=== PATIENT | male | born 1975 | race African-American/Black ===

== ENCOUNTER 2018-02-03 16:16 | Inpatient (IN) | payer OTHER ==
[2018-02-03 16:39] VITALS: BMI 24.0
--- NOTE | 2018-02-03 17:20 | HP ---
CIWA Score - CIWA Score Nausea/Vomitin Muscle Tremors: 1-None Visible, but [place] Anxiety: 3 Agitation: 1-Slight > Activity Paroxysmal Sweats: 2 Orientation: 1-Uncertain about Date Tacttile Disturbances: 0-None Auditory Disturbances: 0-None Visual Disturbances: 0-None Headache: 2-Mild CIWA-Ar Total Score: 12 Admission [facility] Chief Complaint: ETOH withdrawal symptoms and cocaine dependence. Allergies/Adverse Reactions: Allergies Allergy/AdvReac Type Severity Reaction Status Date / Time aspirin Allergy Severe Difficulty Verified 02/03/18 16:52 Breathing sulfamethoxazole Allergy Verified 02/03/18 16:53 [From Bactrim] trimethoprim [From Bactrim] Allergy Verified 02/03/18 16:53 History of Present Illness: Patient presents with ETOH withdrawal symptoms and Cocaine dependence. Patient started drinking at age 39. Drinks up to 1/2 of tequila daily. Last drink was early this morning. Also smokes Crack/Cocaine since age 39. Smokies up to 500 dollars weekly. Last time he smoked was last night. Patient denies hx of seizures. PMH includes HTN and HIV. Patient is compliant with medication. Has own meds and last time take was 2 days ago. Patient denies SI/HI and suicide attempts. This is patients first time in detox. Exam Limitations: No Limitations - Ebola screening Have you traveled outside of the country in the last 21 days: No Have you had contact with anyone from an Ebola affected area: No Have you been sick,other than usual withdrawal symptoms: No Do you have a fever: No - Review of Systems Constitutional: Changes in sleep EENT: reports: No Symptoms Reported Respiratory: reports: No Symptoms reported Cardiac: reports: No Symptoms Reported GI: reports: Poor Fluid Intake, Abdominal cramping : reports: No Symptoms Reported Musculoskeletal: reports: No Symptoms Reported Integumentary: reports: Sweating Neuro: reports: Tremors Endocrine: reports: No Symptoms Reported Hematology: reports: No Symptoms Reported Psychiatric: reports: Anxious, Depressed Patient History - Patient Medical History Hx Asthma: No Hx Chronic Obstructive Pulmonary Disease (COPD): No Hx Cancer: No Hx Cardiac Disorders: Yes (HTN) Hx Congestive Heart Failure: No Hx Hypertension: No Hx Hypercholesterolemia: No Hx Pacemaker: No HX Cerebrovascular Accident: No Hx Seizures: No Hx Dementia: No Hx Diabetes: No Hx Gastrointestinal Disorders: No Hx Liver Disease: No Hx Genitourinary Disorders: No Hx Sexually Transmitted Disorders: Yes Hx Renal Disease (ESRD): No Hx Thyroid Disease: No Hx Human Immunodeficiency Virus (HIV): Yes (diagnosed in 2008) Hx Hepatitis C: No Hx Depression: No Hx Suicide Attempt: No Hx Bipolar Disorder: No Hx Schizophrenia: No - Patient Surgical History Past Surgical History: No Hx Neurologic Surgery: No Hx Cataract Extraction: No Hx Cardiac Surgery: No Hx Lung Surgery: No Hx Breast Surgery: No Hx Breast Biopsy: No Hx Abdominal Surgery: No Hx Appendectomy: No Hx Cholecystectomy: No Hx Genitourinary Surgery: No Hx Orthopedic Surgery: No Anesthesia Reaction: No - PPD History Previous Implant?: Yes Documented Results: Negative w/o proof Implanted On Prior [facility] Admission?: No PPD to be Administered?: Yes - Smoking Cessation Smoking history: Never smoked Have you smoked in the past 12 months: No Hx Chewing Tobacco Use: No Initiated information on smoking cessation: No - Substance & Tx. History Hx Alcohol Use: Yes Hx Substance Use: Yes Substance Use Type: Alcohol, Cocaine Hx Substance Use Treatment: No - Substances Abused Crack Route: Smoking Frequency: 3-6 times per week Amount used: $500/wk Age of first use: 39 Date of Last Use: 02/02/18 ETOH Route: Oral Frequency: Daily Amount used: 1 pint Age of first use: 39 Date of Last Use: 02/03/18 Family Disease History - Family Disease History Family History: Denies Admission Physical Exam [facility] - Vital Signs Vital Signs: Vital Signs - 24 hr 02/03/18 16:37 Temperature 97.9 F Pulse Rate 65 Respiratory 18 Rate Blood Pressure 139/99 - Physical General Appearance: Yes: No Apparent Distress, Appropriately Dressed, Tremorous , Sweating, Anxious HEENTM: Yes: EOMI, Hearing grossly Normal, Normocephalic, Normal Voice, STEPHEN, Pharynx Normal Respiratory: Yes: Chest Non-Tender, Lungs Clear, Normal Breath Sounds, No Respiratory Distress, No Accessory Muscle Use Neck: Yes: No masses,lesions,Nodules, Supple Breast: Yes: Breast Exam Deferred Cardiology: Yes: Regular Rhythm, Regular Rate, S1, S2 Abdominal: Yes: Normal Bowel Sounds, Non Tender, Flat Genitourinary: Yes: Within Normal Limits Back: Yes: Muscle Spasm Musculoskeletal: Yes: full range of Motion, Gait Steady, Muscle Pain Extremities: Yes: Normal Inspection, Normal Range of Motion, Non-Tender, Tremors Neurological: Yes: executive chef II-XII NML intact, Fully Oriented, Alert, Motor Strength 5/5, Depressed Affect Integumentary: Yes: Normal Color, Warm, Moist Lymphatic: Yes: Within Normal Limits - Diagnostic (1) Alcohol dependence with uncomplicated withdrawal Current Visit: Yes Status: Acute (2) HTN (hypertension) Current Visit: Yes Status: Chronic Qualifiers: Hypertension type: essential hypertension Qualified Code(s): I10 - Essential (primary) hypertension (3) HIV (human immunodeficiency virus infection) Current Visit: Yes Status: Chronic (4) Depressed affect Current Visit: Yes Status: Chronic (5) Cocaine dependence Current Visit: Yes Status: Chronic Qualifiers: Substance use status: uncomplicated Qualified Code(s): F14.20 - Cocaine dependence, uncomplicated Cleared for Admission [facility] - Detox or Rehab [facility] Level of Care: Medically Managed Detox Regimen/Protocol: Librium [facility] Breath Alcohol Content Breath Alcohol Content: 0.004 Urine Drug Screen - Results Drug Screen Negative: No Urine Drug Screen Results: SATHYA-Cocaine
[2018-02-03] MEDS ORDERED: P-EPHED 60MG/TRIPROLIDI 2.5MG TABLET PO PRN (17:28)
[2018-02-03] MEDS ORDERED: LOPERAMIDE HCL 2 MG CAPSULE PO PRN (17:28)
[2018-02-03] MEDS ORDERED: hydrOXYzine PAMOATE 50 MG CAPSULE (FP) PO PRN (17:28)
[2018-02-03] MEDS ORDERED: MAGNESIUM HYDROX 2400MG/30ML ORAL SUSPENSION 30 ML CUP PO PRN (17:28)
[2018-02-03] MEDS ORDERED: MAG HYDROX/AL HYDROX/SIMETH 30 ML UNIT-DOSE CUP PO PRN (17:28)
[2018-02-03] MEDS ORDERED: MENTHOL/PHENOL 1 EACH UD MM PRN (17:28)
[2018-02-03] MEDS ORDERED: MAGNESIUM CITRATE 300 ML BOTTLE PO PRN (17:28)
[2018-02-03] MEDS ORDERED: IBUPROFEN 400 MG TABLET (FP) PO PRN (17:28)
[2018-02-03] MEDS ORDERED: guaiFENesin/D-METHORPHAN HB 10 ML UNIT-DOSE CUPS PO PRN (17:28)
[2018-02-03] MEDS ORDERED: chlordiazePOXIDE HCL 25 MG CAPSULE PO PRN (17:33)
[2018-02-03] MEDS ORDERED: chlordiazePOXIDE HCL 25 MG CAPSULE PO ONE (18:15)
[2018-02-03] MEDS: ETRAVIRINE 100 MG TABLET PO SCH (22:36)
[2018-02-03] MEDS: chlordiazePOXIDE HCL 25 MG CAPSULE PO SCH (22:36)
[2018-02-03] MEDS: MELATONIN 5 MG TABLETS PO PRN (22:37)
[2018-02-03] MEDS: THIAMINE HCL 100 MG TABLET (FP) PO SCH (22:39)
[2018-02-04 02:34] LABS: URINE APPEARANCE CLEAR; URINE BILIRUBIN NEGATIVE (<2.0 mg/dL); URINE COLOR YELLOW; URINE GLUCOSE (UA) NEGATIVE (NEGATIVE); URINE KETONE NEGATIVE (NEGATIVE); URINE LEUK ESTERASE NEGATIVE (NEGATIVE); URINE NITRITE NEGATIVE (NEGATIVE); URINE PROTEIN NEGATIVE (NEGATIVE); URINE UROBILINOGEN NEGATIVE mg/dL (0.2-1.0)
[2018-02-04] MEDS: chlordiazePOXIDE HCL 25 MG CAPSULE PO SCH ×4 (05:44→22:05)
[2018-02-04] MEDS: PRENATAL VITAMINS W/ FOLIC ACID TABLET (FP) PO SCH (10:08)
[2018-02-04] MEDS: RITONAVIR 100 MG TABLET PO SCH (10:09)
[2018-02-04] MEDS: ETRAVIRINE 100 MG TABLET PO SCH ×2 (10:09→22:05)
[2018-02-04] MEDS: DARUNAVIR ETHANOLATE 800 MG TAB PO SCH (10:09)
[2018-02-04 11:00] LABS: HEMATOCRIT 41.5 % (35.4-49); HEMOGLOBIN 14.4 GM/dL (11.7-16.9); MCH 30.8 pg (25.7-33.7); MCHC 34.6 g/dl (32.0-35.9); MEAN CELL VOLUME 89.2 fl (80-96); MEAN PLT VOLUME 8.4 fl (7.5-11.1); PLATELET COUNT 194 K/MM3 (134-434); RBC 4.66 M/mm3 (4.00-5.60); RDW 14.3 % (11.9-15.9); WHITE BLOOD COUNT 4.2 K/mm3 (4.0-10.0)
[2018-02-04 11:18] LABS: CHLORIDE 101 mmol/L (98-107); POTASSIUM 3.4 mmol/L (3.5-5.1); SODIUM 140 mmol/L (136-145)
--- NOTE | 2018-02-04 11:19 | PN ---
[facility] CIWA - CIWA Score Nausea/Vomitin-No Nausea/No Vomiting Muscle Tremors: 4-Moderate,w/Arms Extend Anxiety: 4-Mod. Anxious/Guarded Agitation: 4-Moderately Restless Paroxysmal Sweats: 1-Minimal Palms Moist Orientation: 0-Oriented Tacttile Disturbances: 0-None Auditory Disturbances: 0-None Visual Disturbances: 0-None Headache: 0-None Present CIWA-Ar Total Score: 13 S Progress Note (SOAP) Subjective: ANXIETY,SWEATS. OOB AMBULATING WITH STEADY GAIT. REPORTS DETOX TAPER PROCEEDING WELL. Objective: 02/04/18 11:18 Vital Signs 02/04/18 02/04/18 02/04/18 03:30 06:19 06:30 Temperature 98.2 F Pulse Rate 81 Respiratory 18 18 18 Rate Blood Pressure 129/86 02/04/18 09:25 Temperature 97.6 F Pulse Rate 84 Respiratory 18 Rate Blood Pressure 129/83 Laboratory Tests 02/03/18 02/04/18 23:23 07:00 WBC 4.2 RBC 4.66 Hgb 14.4 Hct 41.5 MCV 89.2 MCH 30.8 MCHC 34.6 RDW 14.3 Plt Count 194 MPV 8.4 Urine Color Yellow Urine Appearance Clear Urine pH 6.0 Ur Specific [place] 1.014 Urine Protein Negative Urine Glucose (UA) Negative Urine Ketones Negative Urine Blood Negative Urine Nitrite Negative Urine Bilirubin Negative Urine Urobilinogen Negative Ur Leukocyte Esterase Negative OTHER LABS PENDING Assessment: 02/04/18 11:19 WITHDRAWAL SX Plan: CONTINUE DETOX
[2018-02-04 11:26] LABS: ALBUMIN 3.6 g/dl (3.4-5.0); ALK PHOS 64 U/L (45-117); ANION GAP 9 (8-16); BILIRUBIN,TOTAL 0.6 mg/dL (0.2-1.0); BLOOD UREA NITROGEN 10 mg/dL (7-18); CO2 30 mmol/L (21-32); CREATININE 1.2 mg/dL (0.7-1.3); GLUCOSE,RANDOM 106 mg/dL (74-106); SGOT/AST 16 U/L (15-37); SGPT/ALT 20 U/L (12-78); TOT PROT 7.2 g/dl (6.4-8.2)
--- NOTE | 2018-02-04 16:29 | EKG ---
Test Reason : Blood Pressure : / mmHG Vent. Rate : 064 BPM Atrial Rate : 064 BPM P-R Int : 146 ms QRS Dur : 086 ms QT Int : 418 ms P-R-T Axes : 053 060 041 degrees QTc Int : 431 ms NORMAL SINUS RHYTHM WITH SINUS ARRHYTHMIA NORMAL ECG NO PREVIOUS ECGS AVAILABLE Confirmed by Salvatore Peters MD ([id number]) on 02/04/2018 4:29:08 PM Referred By: Confirmed By:Salvatore Peters MD
[2018-02-04] MEDS: THIAMINE HCL 100 MG TABLET (FP) PO SCH (22:05)
[2018-02-04] MEDS: MELATONIN 5 MG TABLETS PO PRN (22:06)
[2018-02-05] MEDS: chlordiazePOXIDE HCL 25 MG CAPSULE PO SCH ×3 (05:37→17:32)
[2018-02-05] MEDS: PRENATAL VITAMINS W/ FOLIC ACID TABLET (FP) PO SCH (10:10)
[2018-02-05] MEDS: ETRAVIRINE 100 MG TABLET PO SCH (10:10)
[2018-02-05] MEDS: DARUNAVIR ETHANOLATE 800 MG TAB PO SCH (10:10)
[2018-02-05] MEDS: RITONAVIR 100 MG TABLET PO SCH (10:10)
--- NOTE | 2018-02-05 11:29 | PN ---
S CIWA - CIWA Score Nausea/Vomitin-No Nausea/No Vomiting Muscle Tremors: 4-Moderate,w/Arms Extend Anxiety: 4-Mod. Anxious/Guarded Agitation: 4-Moderately Restless Paroxysmal Sweats: 1-Minimal Palms Moist Orientation: 0-Oriented Tacttile Disturbances: 0-None Auditory Disturbances: 0-None Visual Disturbances: 0-None Headache: 0-None Present CIWA-Ar Total Score: 13 BHS Progress Note (SOAP) Subjective: ANXIETY,SWEATS,INTERMITTENT SLEEP. Objective: 02/05/18 11:28 Vital Signs 02/05/18 02/05/18 02/05/18 03:30 06:17 06:30 Temperature 97.9 F Pulse Rate 90 Respiratory 18 18 18 Rate Blood Pressure 116/73 02/05/18 09:26 Temperature 97.6 F Pulse Rate 92 H Respiratory 18 Rate Blood Pressure 114/72 Laboratory Tests 02/03/18 02/04/18 02/04/18 23:23 07:00 07:00 WBC 4.2 RBC 4.66 Hgb 14.4 Hct 41.5 MCV 89.2 MCH 30.8 MCHC 34.6 RDW 14.3 Plt Count 194 MPV 8.4 Sodium 140 Potassium 3.4 L Chloride 101 Carbon Dioxide 30 Anion Gap 9 BUN 10 Creatinine 1.2 Creat Clearance w eGFR > 60 Random Glucose 106 Calcium 9.0 Total Bilirubin 0.6 AST 16 ALT 20 Alkaline Phosphatase 64 Total Protein 7.2 Albumin 3.6 Urine Color Yellow Urine Appearance Clear Urine pH 6.0 Ur Specific [place] 1.014 Urine Protein Negative Urine Glucose (UA) Negative Urine Ketones Negative Urine Blood Negative Urine Nitrite Negative Urine Bilirubin Negative Urine Urobilinogen Negative Ur Leukocyte Esterase Negative RPR Titer 02/04/18 07:00 WBC RBC Hgb Hct MCV MCH MCHC RDW Plt Count MPV Sodium Potassium Chloride Carbon Dioxide Anion Gap BUN Creatinine Creat Clearance w eGFR Random Glucose Calcium Total Bilirubin AST ALT Alkaline Phosphatase Total Protein Albumin Urine Color Urine Appearance Urine pH Ur Specific [place] Urine Protein Urine Glucose (UA) Urine Ketones Urine Blood Urine Nitrite Urine Bilirubin Urine Urobilinogen Ur Leukocyte Esterase RPR Titer Nonreactive Assessment: 02/05/18 11:29 WITHDRAWAL SX Plan: CONTINUE DETOX
[2018-02-05] MEDS: ACETAMINOPHEN 325 MG TABLET (FP) PO PRN (17:33)
[2018-02-05] MEDS: ETRAVIRINE 200 MG TABLET PO SCH (18:06)
[2018-02-05] MEDS ORDERED: ETRAVIRINE 200 MG TABLET PO SCH (22:00)
[2018-02-05] MEDS: chlordiazePOXIDE 5 MG CAPSULE PO SCH (22:05)
[2018-02-05] MEDS: THIAMINE HCL 100 MG TABLET (FP) PO SCH (22:05)
[2018-02-05] MEDS: MELATONIN 5 MG TABLETS PO PRN (22:06)
[2018-02-06] MEDS: ACETAMINOPHEN 325 MG TABLET (FP) PO PRN ×3 (05:04→22:16)
[2018-02-06] MEDS: chlordiazePOXIDE 5 MG CAPSULE PO SCH ×3 (05:04→17:29)
[2018-02-06] MEDS: PRENATAL VITAMINS W/ FOLIC ACID TABLET (FP) PO SCH (10:10)
[2018-02-06] MEDS: DARUNAVIR ETHANOLATE 800 MG TAB PO SCH (10:10)
[2018-02-06] MEDS: RITONAVIR 100 MG TABLET PO SCH (10:11)
[2018-02-06] MEDS: ETRAVIRINE 200 MG TABLET PO SCH ×2 (10:15→22:15)
--- NOTE | 2018-02-06 11:04 | PN ---
[facility] Progress Note (SOAP) Subjective: C/O HEADACHE-RECIEVED TYLENOL,ANXIETY,FATIGUE. Objective: 02/06/18 11:02 Vital Signs Temperature 98.4 F 02/06/18 09:13 Pulse Rate 95 H 02/06/18 09:13 Respiratory Rate 18 02/06/18 09:13 Blood Pressure 117/70 02/06/18 09:13 O2 Sat by Pulse Oximetry (%) Laboratory Tests 02/03/18 02/04/18 02/04/18 23:23 07:00 07:00 WBC 4.2 RBC 4.66 Hgb 14.4 Hct 41.5 MCV 89.2 MCH 30.8 MCHC 34.6 RDW 14.3 Plt Count 194 MPV 8.4 Sodium 140 Potassium 3.4 L Chloride 101 Carbon Dioxide 30 Anion Gap 9 BUN 10 Creatinine 1.2 Creat Clearance w eGFR > 60 Random Glucose 106 Calcium 9.0 Total Bilirubin 0.6 AST 16 ALT 20 Alkaline Phosphatase 64 Total Protein 7.2 Albumin 3.6 Urine Color Yellow Urine Appearance Clear Urine pH 6.0 Ur Specific [place] 1.014 Urine Protein Negative Urine Glucose (UA) Negative Urine Ketones Negative Urine Blood Negative Urine Nitrite Negative Urine Bilirubin Negative Urine Urobilinogen Negative Ur Leukocyte Esterase Negative RPR Titer 02/04/18 07:00 WBC RBC Hgb Hct MCV MCH MCHC RDW Plt Count MPV Sodium Potassium Chloride Carbon Dioxide Anion Gap BUN Creatinine Creat Clearance w eGFR Random Glucose Calcium Total Bilirubin AST ALT Alkaline Phosphatase Total Protein Albumin Urine Color Urine Appearance Urine pH Ur Specific [place] Urine Protein Urine Glucose (UA) Urine Ketones Urine Blood Urine Nitrite Urine Bilirubin Urine Urobilinogen Ur Leukocyte Esterase RPR Titer Nonreactive Assessment: 02/06/18 11:02 WITHDRAWAL SX Plan: CONTINUE DETOX TYLENOL DIRECTED. INCREASE PO FLUIDS
[2018-02-06] MEDS: MELATONIN 5 MG TABLETS PO PRN (22:15)
[2018-02-06] MEDS: THIAMINE HCL 100 MG TABLET (FP) PO SCH (22:15)
[2018-02-06] MEDS: chlordiazePOXIDE HCL 10 MG CAPSULE PO SCH (22:15)
[2018-02-07] MEDS: chlordiazePOXIDE HCL 10 MG CAPSULE PO SCH ×2 (05:29→10:10)
[2018-02-07 09:30] VITALS: BP 133/88; PULSE 85; TEMP 97.2
[2018-02-07] MEDS: ETRAVIRINE 200 MG TABLET PO SCH (10:09)
[2018-02-07] MEDS: PRENATAL VITAMINS W/ FOLIC ACID TABLET (FP) PO SCH (10:10)
[2018-02-07] MEDS: DARUNAVIR ETHANOLATE 800 MG TAB PO SCH (10:10)
[2018-02-07] MEDS: RITONAVIR 100 MG TABLET PO SCH (10:10)
[2018-02-07] MEDS: ACETAMINOPHEN 325 MG TABLET (FP) PO PRN (10:12)
--- NOTE | 2018-02-07 10:33 | PN ---
S Progress Note (SOAP) Subjective: DETOX COMPLETED. ALERT O X 3. NAD. PT STATES HE HAS PRIMARY CARE AT [facility] WITH DR. JAVIER LOYD. Objective: 02/07/18 10:32 Vital Signs 02/07/18 02/07/18 02/07/18 03:30 06:00 09:10 Temperature 96.7 F L 97.2 F L Pulse Rate 92 H 85 Respiratory 18 18 18 Rate Blood Pressure 121/78 133/88 Laboratory Tests 02/03/18 02/04/18 02/04/18 23:23 07:00 07:00 WBC 4.2 RBC 4.66 Hgb 14.4 Hct 41.5 MCV 89.2 MCH 30.8 MCHC 34.6 RDW 14.3 Plt Count 194 MPV 8.4 Sodium 140 Potassium 3.4 L Chloride 101 Carbon Dioxide 30 Anion Gap 9 BUN 10 Creatinine 1.2 Creat Clearance w eGFR > 60 Random Glucose 106 Calcium 9.0 Total Bilirubin 0.6 AST 16 ALT 20 Alkaline Phosphatase 64 Total Protein 7.2 Albumin 3.6 Urine Color Yellow Urine Appearance Clear Urine pH 6.0 Ur Specific [place] 1.014 Urine Protein Negative Urine Glucose (UA) Negative Urine Ketones Negative Urine Blood Negative Urine Nitrite Negative Urine Bilirubin Negative Urine Urobilinogen Negative Ur Leukocyte Esterase Negative RPR Titer 02/04/18 07:00 WBC RBC Hgb Hct MCV MCH MCHC RDW Plt Count MPV Sodium Potassium Chloride Carbon Dioxide Anion Gap BUN Creatinine Creat Clearance w eGFR Random Glucose Calcium Total Bilirubin AST ALT Alkaline Phosphatase Total Protein Albumin Urine Color Urine Appearance Urine pH Ur Specific [place] Urine Protein Urine Glucose (UA) Urine Ketones Urine Blood Urine Nitrite Urine Bilirubin Urine Urobilinogen Ur Leukocyte Esterase RPR Titer Nonreactive Assessment: 02/07/18 10:32 MEDICALLY STABLE Plan: D/C PT TODAY TO [facility] [address] [place] [address] FOR AFTERCARE.
--- NOTE | 2018-02-07 10:35 | DS ---
[facility] Detox Discharge Summary Admission Date: 02/03/18 Discharge Date: 02/07/18 - History Present History: Alcohol Dependence, Cocaine Dependence Additional Comments: DETOX COMPLETED. ALERT O X 3. NAD. FOLLOW UP WITH PMD, DR JAVIER LOYD FOR MEDICAL MANAGEMENT OF COMORBID CONDITIONS NEEDED. Pertinent Past History: PLEASE SEE DX BELOW - Physical Exam Results Vital Signs: Vital Signs Temperature 97.2 F L 02/07/18 09:10 Pulse Rate 85 02/07/18 09:10 Respiratory Rate 18 02/07/18 09:10 Blood Pressure 133/88 02/07/18 09:10 O2 Sat by Pulse Oximetry (%) Pertinent Admission Physical Exam Findings: WITHDRAWAL SX Laboratory Tests 02/03/18 02/04/18 02/04/18 23:23 07:00 07:00 WBC 4.2 RBC 4.66 Hgb 14.4 Hct 41.5 MCV 89.2 MCH 30.8 MCHC 34.6 RDW 14.3 Plt Count 194 MPV 8.4 Sodium 140 Potassium 3.4 L Chloride 101 Carbon Dioxide 30 Anion Gap 9 BUN 10 Creatinine 1.2 Creat Clearance w eGFR > 60 Random Glucose 106 Calcium 9.0 Total Bilirubin 0.6 AST 16 ALT 20 Alkaline Phosphatase 64 Total Protein 7.2 Albumin 3.6 Urine Color Yellow Urine Appearance Clear Urine pH 6.0 Ur Specific [place] 1.014 Urine Protein Negative Urine Glucose (UA) Negative Urine Ketones Negative Urine Blood Negative Urine Nitrite Negative Urine Bilirubin Negative Urine Urobilinogen Negative Ur Leukocyte Esterase Negative RPR Titer 02/04/18 07:00 WBC RBC Hgb Hct MCV MCH MCHC RDW Plt Count MPV Sodium Potassium Chloride Carbon Dioxide Anion Gap BUN Creatinine Creat Clearance w eGFR Random Glucose Calcium Total Bilirubin AST ALT Alkaline Phosphatase Total Protein Albumin Urine Color Urine Appearance Urine pH Ur Specific [place] Urine Protein Urine Glucose (UA) Urine Ketones Urine Blood Urine Nitrite Urine Bilirubin Urine Urobilinogen Ur Leukocyte Esterase RPR Titer Nonreactive - Treatment Hospital Course: Detox Protocol Followed, Detoxed Safely, Responded well, Discharged Condition Good, Rehab Referral Accepted Patient has Accepted a Rehab Referral to: [email or web address] [address] [place] [address] - [facility] Discharge Medications: Ambulatory Orders Darunavir Ethanolate [Prezista -] 800 mg PO DAILY 02/03/18 Etravirine [Intelence -] 200 mg PO BID 02/03/18 Ritonavir 100 mg PO DAILY 02/03/18 - Diagnosis (1) Alcohol dependence with uncomplicated withdrawal Current Visit: Yes Status: Acute (2) Cocaine dependence Current Visit: Yes Status: Acute Qualifiers: Substance use status: uncomplicated Qualified Code(s): F14.20 - Cocaine dependence, uncomplicated (3) HIV (human immunodeficiency virus infection) Current Visit: Yes Status: Chronic (4) HTN (hypertension) Current Visit: Yes Status: Chronic Qualifiers: Hypertension type: essential hypertension Qualified Code(s): I10 - Essential (primary) hypertension - AMA Did Patient Leave Against Medical Advice: No
== END 2018-02-07 11:42 | disposition other institution (70) | DRG 774 ==
LOC: YASAS 16:16 → Y3N 18:01
PROVIDERS: ADMIT Surgery; ATTEND Surgery
PROC: HZ2ZZZZ Detoxification Services for Substance Abuse Treatment (ICD-10-PCS; principal; 2018-02-03)
DX: F10.230 Alcohol dependence with withdrawal, uncomplicated (principal); F14.20 Cocaine dependence, uncomplicated; F32.9 Major depressive disorder, single episode, unspecified; I10 Essential (primary) hypertension; Z88.2 Allergy status to sulfonamides; Z88.5 Allergy status to narcotic agent
CPT/HCPCS: 36415; 80053; 81003; 85027; 86593; 93005; 93010

== ENCOUNTER 2018-02-07 11:48 | Inpatient (IN) | payer OTHER ==
--- NOTE | 2018-02-07 12:13 | HP ---
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 However, reports feeling anxious and sleeping poorly Physical/Sexual Abuse/Trauma History: Denies history of emotional, physical or sexual abuse as well as DV relationship. No service Additional Comment: Reports history of one previous misdemeanor arrest on charges of trespassing. Told typewriter tester that the charges were dropped after completing community service Allergies/Adverse Reactions: Allergies Allergy/AdvReac Type Severity Reaction Status Date / Time aspirin Allergy Severe Difficulty Verified 02/03/18 16:52 Breathing sulfamethoxazole Allergy Verified 02/03/18 16:53 [From Bactrim] trimethoprim [From Bactrim] Allergy Verified 02/03/18 16:53 Date of last physical exam: 02/03/18 Concur with the findings of this exam: Yes - Substance Abuse/Tx History Hx Alcohol Use: Yes Hx Substance Use: Yes Substance Use Type: Alcohol (Started drinking alcohol at age 39, consumes one pint of liquor daily. Last drank on 02/03/18), Cocaine (Started smoking crack cocaine at age 39, consumes $500 worth weekly. Last smoked on 02/02/18) Hx Substance Use Treatment: Yes (Just completed his first inpt detox at this facility. First inpt rehab adm) Mental Status Exam - Mental Status Exam Alert and Oriented to: Time, Place, Person Cognitive Function: Fair Patient Appearance: Well Groomed Mood: Anxious Affect: Appropriate Patient Behavior: Cooperative Speech Pattern: Clear Voice Loudness: Normal Thought Process: Intact Thought Disorder: Not Present Hallucinations: Denies Suicidal Ideation: Denies Homicidal Ideation: Denies Insight/Judgement: Fair Sleep: Poorly Appetite: Good Muscle strength/Tone: Normal Gait/Station: Normal Psychiatric Findings - Problem List ([place] 1, 2,3) (1) Alcohol dependence Current Visit: Yes Status: Acute (2) Cocaine dependence Current Visit: No Status: Acute Qualifiers: (3) Substance-induced anxiety disorder Current Visit: Yes Status: Acute (4) Substance-induced sleep disorder Current Visit: Yes Status: Acute (5) HIV (human immunodeficiency virus infection) Current Visit: No Status: Chronic (6) HTN (hypertension) Current Visit: No Status: Chronic Qualifiers: Hypertension type: essential hypertension Qualified Code(s): I10 - Essential (primary) hypertension (7) HLD (hyperlipidemia) Current Visit: Yes Status: Chronic (8) Non-Hodgkin lymphoma Current Visit: Yes Status: Chronic (9) History of seizure disorder Current Visit: Yes Status: Chronic - Initial Treatment Plan Initial Treatment Plan: 1) Start Belsomra 10 mg po HS prn for insomnia. 2) Monitor progress
[2018-02-07] MEDS ORDERED: MAG HYDROX/AL HYDROX/SIMETH 30 ML UNIT-DOSE CUP PO PRN (13:13)
[2018-02-07] MEDS ORDERED: MAGNESIUM CITRATE 300 ML BOTTLE PO PRN (13:13)
[2018-02-07] MEDS ORDERED: IBUPROFEN 400 MG TABLET (FP) PO PRN (13:13)
[2018-02-07] MEDS ORDERED: MAGNESIUM HYDROX 2400MG/30ML ORAL SUSPENSION 30 ML CUP PO PRN (13:13)
[2018-02-07] MEDS ORDERED: LOPERAMIDE HCL 2 MG CAPSULE PO PRN (13:13)
[2018-02-07] MEDS ORDERED: P-EPHED 60MG/TRIPROLIDI 2.5MG TABLET PO PRN (13:13)
[2018-02-07] MEDS ORDERED: MENTHOL/PHENOL 1 EACH UD MM PRN (13:13)
[2018-02-07] MEDS ORDERED: hydrOXYzine PAMOATE 50 MG CAPSULE (FP) PO PRN (13:13)
[2018-02-07] MEDS ORDERED: guaiFENesin/D-METHORPHAN HB 10 ML UNIT-DOSE CUPS PO PRN (13:13)
--- NOTE | 2018-02-07 13:18 | PN ---
[facility] Progress Note Note: PATIENT TRANSFERRED FROM DETOX TO . PATIENT IN NAD. DENIES CP, SOB AND HEADACHE. REPORTS MILD DIZZINESS. BP NOTED ELEVATED AT 139/100. PATIENT HAS HX OF HTN BUT NON-COMPLIANT WITH MEDICATION. EXTERNAL HX SHOWS LISINOPRIL 40MG AND METOPROLOL 50MG BID. PE: ALERT AND ORIENTED X 3. IN NAD. SKIN WARM AND DRY. EXT WITHOUT EDEMA, FULL ROM. BREATHING WELL ON ROOM AIR. A/P HTN: WILL ORDER LISINOPRIL 40MG DAILY FIRST DOSE NOW, METOPROLOL 50MG BID FIRST DOSE NOW. CONTINUE TO MONITOR CLINICALLY.
[2018-02-07] MEDS ORDERED: LISINOPRIL 20 MG TABLET (FP) PO ONE (13:45)
[2018-02-07 14:56] VITALS: BMI 23.7
[2018-02-07] MEDS: LIDOCAINE 5% TOPICAL PATCH TP SCH (16:02)
[2018-02-07] MEDS: THIAMINE HCL 100 MG TABLET (FP) PO SCH (21:36)
[2018-02-07] MEDS: LIDOCAINE PATCH REMOVAL MC SCH (21:36)
[2018-02-07] MEDS: ETRAVIRINE 200 MG TABLET PO SCH (21:36)
[2018-02-07] MEDS: SUVOREXANT 10 MG TABLET PO PRN (21:40)
[2018-02-08] MEDS: ETRAVIRINE 200 MG TABLET PO SCH ×2 (10:28→22:01)
[2018-02-08] MEDS: RITONAVIR 100 MG TABLET PO SCH (10:28)
[2018-02-08] MEDS: LISINOPRIL 20 MG TABLET (FP) PO SCH (10:29)
[2018-02-08] MEDS: PRENATAL VITAMINS W/ FOLIC ACID TABLET (FP) PO SCH (10:29)
[2018-02-08] MEDS: DARUNAVIR ETHANOLATE 800 MG TAB PO SCH (10:29)
[2018-02-08] MEDS: ACETAMINOPHEN 325 MG TABLET (FP) PO PRN (10:30)
[2018-02-08] MEDS: LIDOCAINE 5% TOPICAL PATCH TP SCH (10:32)
[2018-02-08] MEDS: THIAMINE HCL 100 MG TABLET (FP) PO SCH (22:01)
[2018-02-08] MEDS: LIDOCAINE PATCH REMOVAL MC SCH (22:04)
[2018-02-09] MEDS: PRENATAL VITAMINS W/ FOLIC ACID TABLET (FP) PO SCH (10:39)
[2018-02-09] MEDS: RITONAVIR 100 MG TABLET PO SCH (10:39)
[2018-02-09] MEDS: DARUNAVIR ETHANOLATE 800 MG TAB PO SCH (10:39)
[2018-02-09] MEDS: LISINOPRIL 20 MG TABLET (FP) PO SCH (10:39)
[2018-02-09] MEDS: ETRAVIRINE 200 MG TABLET PO SCH ×2 (10:39→22:02)
[2018-02-09] MEDS: LIDOCAINE 5% TOPICAL PATCH TP SCH (10:40)
[2018-02-09] MEDS: ACETAMINOPHEN 325 MG TABLET (FP) PO PRN ×2 (10:42→22:03)
--- NOTE | 2018-02-09 16:37 | PN ---
[facility] Progress Note Note: Tylenol ordered for pain for pt. Pt has neuropathic pain s/p shingles but states Tylenol works better for him than Gabapentin
[2018-02-09] MEDS: MELATONIN 5 MG TABLETS PO PRN (22:01)
[2018-02-09] MEDS: LIDOCAINE PATCH REMOVAL MC SCH (22:01)
[2018-02-09] MEDS: THIAMINE HCL 100 MG TABLET (FP) PO SCH (22:01)
[2018-02-10] MEDS: PRENATAL VITAMINS W/ FOLIC ACID TABLET (FP) PO SCH (10:35)
[2018-02-10] MEDS: DARUNAVIR ETHANOLATE 800 MG TAB PO SCH (10:35)
[2018-02-10] MEDS: LISINOPRIL 20 MG TABLET (FP) PO SCH (10:35)
[2018-02-10] MEDS: RITONAVIR 100 MG TABLET PO SCH (10:35)
[2018-02-10] MEDS: ETRAVIRINE 200 MG TABLET PO SCH ×2 (10:35→21:41)
[2018-02-10] MEDS: LIDOCAINE 5% TOPICAL PATCH TP SCH (10:35)
[2018-02-10] MEDS: THIAMINE HCL 100 MG TABLET (FP) PO SCH (21:42)
[2018-02-10] MEDS: LIDOCAINE PATCH REMOVAL MC SCH (21:42)
[2018-02-10] MEDS: SUVOREXANT 10 MG TABLET PO PRN (21:42)
[2018-02-10] MEDS: ACETAMINOPHEN 325 MG TABLET (FP) PO PRN (21:43)
[2018-02-11] MEDS: PRENATAL VITAMINS W/ FOLIC ACID TABLET (FP) PO SCH (10:39)
[2018-02-11] MEDS: ETRAVIRINE 200 MG TABLET PO SCH ×2 (10:39→21:49)
[2018-02-11] MEDS: RITONAVIR 100 MG TABLET PO SCH (10:39)
[2018-02-11] MEDS: LIDOCAINE 5% TOPICAL PATCH TP SCH (10:39)
[2018-02-11] MEDS: LISINOPRIL 20 MG TABLET (FP) PO SCH (10:40)
[2018-02-11] MEDS: DARUNAVIR ETHANOLATE 800 MG TAB PO SCH (10:40)
[2018-02-11] MEDS: ACETAMINOPHEN 325 MG TABLET (FP) PO PRN (21:47)
[2018-02-11] MEDS: MELATONIN 5 MG TABLETS PO PRN (21:47)
[2018-02-11] MEDS: THIAMINE HCL 100 MG TABLET (FP) PO SCH (21:48)
[2018-02-11] MEDS: LIDOCAINE PATCH REMOVAL MC SCH (21:48)
[2018-02-12] MEDS: LISINOPRIL 20 MG TABLET (FP) PO SCH (10:39)
[2018-02-12] MEDS: DARUNAVIR ETHANOLATE 800 MG TAB PO SCH (10:40)
[2018-02-12] MEDS: ETRAVIRINE 200 MG TABLET PO SCH ×2 (10:41→21:41)
[2018-02-12] MEDS: LIDOCAINE 5% TOPICAL PATCH TP SCH (10:41)
[2018-02-12] MEDS: RITONAVIR 100 MG TABLET PO SCH (10:41)
[2018-02-12] MEDS: PRENATAL VITAMINS W/ FOLIC ACID TABLET (FP) PO SCH (10:41)
[2018-02-12] MEDS: THIAMINE HCL 100 MG TABLET (FP) PO SCH (21:40)
[2018-02-12] MEDS: MELATONIN 5 MG TABLETS PO PRN (21:40)
[2018-02-12] MEDS: ACETAMINOPHEN 325 MG TABLET (FP) PO PRN (21:41)
[2018-02-12] MEDS: LIDOCAINE PATCH REMOVAL MC SCH (22:10)
[2018-02-13] MEDS: LIDOCAINE 5% TOPICAL PATCH TP SCH (11:07)
[2018-02-13] MEDS: PRENATAL VITAMINS W/ FOLIC ACID TABLET (FP) PO SCH (11:08)
[2018-02-13] MEDS: LISINOPRIL 20 MG TABLET (FP) PO SCH (11:08)
[2018-02-13] MEDS: DARUNAVIR ETHANOLATE 800 MG TAB PO SCH (11:13)
[2018-02-13] MEDS: ETRAVIRINE 200 MG TABLET PO SCH ×2 (11:15→22:21)
[2018-02-13] MEDS: RITONAVIR 100 MG TABLET PO SCH (11:15)
[2018-02-13] MEDS: THIAMINE HCL 100 MG TABLET (FP) PO SCH (22:17)
[2018-02-13] MEDS: MELATONIN 5 MG TABLETS PO PRN (22:17)
[2018-02-13] MEDS: ACETAMINOPHEN 325 MG TABLET (FP) PO PRN (22:18)
[2018-02-13] MEDS: LIDOCAINE PATCH REMOVAL MC SCH (22:20)
[2018-02-14] MEDS: LIDOCAINE 5% TOPICAL PATCH TP SCH (10:56)
[2018-02-14] MEDS: PRENATAL VITAMINS W/ FOLIC ACID TABLET (FP) PO SCH (10:57)
[2018-02-14] MEDS: LISINOPRIL 20 MG TABLET (FP) PO SCH (10:57)
[2018-02-14] MEDS: DARUNAVIR ETHANOLATE 800 MG TAB PO SCH (10:57)
[2018-02-14] MEDS: ETRAVIRINE 200 MG TABLET PO SCH ×2 (11:09→21:43)
[2018-02-14] MEDS: RITONAVIR 100 MG TABLET PO SCH (11:09)
[2018-02-14] MEDS ORDERED: PT OWN MED DRAWER 7, Y5N ONE (11:10)
[2018-02-14] MEDS: THIAMINE HCL 100 MG TABLET (FP) PO SCH (21:42)
[2018-02-14] MEDS: MELATONIN 5 MG TABLETS PO PRN (21:44)
[2018-02-14] MEDS: LIDOCAINE PATCH REMOVAL MC SCH (21:44)
[2018-02-14] MEDS: ACETAMINOPHEN 325 MG TABLET (FP) PO PRN (21:45)
[2018-02-15] MEDS: LISINOPRIL 20 MG TABLET (FP) PO SCH (10:32)
[2018-02-15] MEDS: PRENATAL VITAMINS W/ FOLIC ACID TABLET (FP) PO SCH (10:32)
[2018-02-15] MEDS: RITONAVIR 100 MG TABLET PO SCH (10:33)
[2018-02-15] MEDS: ETRAVIRINE 200 MG TABLET PO SCH ×2 (10:33→22:23)
[2018-02-15] MEDS: DARUNAVIR ETHANOLATE 800 MG TAB PO SCH (10:33)
[2018-02-15] MEDS: LIDOCAINE 5% TOPICAL PATCH TP SCH (10:34)
[2018-02-15] MEDS: LIDOCAINE PATCH REMOVAL MC SCH (22:20)
[2018-02-15] MEDS: THIAMINE HCL 100 MG TABLET (FP) PO SCH (22:21)
[2018-02-15] MEDS: ACETAMINOPHEN 325 MG TABLET (FP) PO PRN (22:25)
[2018-02-16] MEDS: DARUNAVIR ETHANOLATE 800 MG TAB PO SCH (10:46)
[2018-02-16] MEDS: RITONAVIR 100 MG TABLET PO SCH (10:47)
[2018-02-16] MEDS: PRENATAL VITAMINS W/ FOLIC ACID TABLET (FP) PO SCH (10:47)
[2018-02-16] MEDS: LISINOPRIL 20 MG TABLET (FP) PO SCH (10:47)
[2018-02-16] MEDS: ETRAVIRINE 200 MG TABLET PO SCH ×2 (10:47→22:16)
[2018-02-16] MEDS: LIDOCAINE 5% TOPICAL PATCH TP SCH (10:48)
[2018-02-16] MEDS: LIDOCAINE PATCH REMOVAL MC SCH (22:14)
[2018-02-16] MEDS: THIAMINE HCL 100 MG TABLET (FP) PO SCH (22:17)
[2018-02-16] MEDS: MELATONIN 5 MG TABLETS PO PRN (22:18)
[2018-02-17] MEDS: ETRAVIRINE 200 MG TABLET PO SCH ×2 (10:40→21:45)
[2018-02-17] MEDS: DARUNAVIR ETHANOLATE 800 MG TAB PO SCH (10:40)
[2018-02-17] MEDS: PRENATAL VITAMINS W/ FOLIC ACID TABLET (FP) PO SCH (10:40)
[2018-02-17] MEDS: LISINOPRIL 20 MG TABLET (FP) PO SCH (10:40)
[2018-02-17] MEDS: RITONAVIR 100 MG TABLET PO SCH (10:41)
[2018-02-17] MEDS: LIDOCAINE 5% TOPICAL PATCH TP SCH (10:41)
[2018-02-17] MEDS: THIAMINE HCL 100 MG TABLET (FP) PO SCH (21:45)
[2018-02-17] MEDS: LIDOCAINE PATCH REMOVAL MC SCH (21:46)
[2018-02-18] MEDS: PRENATAL VITAMINS W/ FOLIC ACID TABLET (FP) PO SCH (10:49)
[2018-02-18] MEDS: ETRAVIRINE 200 MG TABLET PO SCH ×2 (10:50→22:01)
[2018-02-18] MEDS: RITONAVIR 100 MG TABLET PO SCH (10:50)
[2018-02-18] MEDS: LIDOCAINE 5% TOPICAL PATCH TP SCH (10:50)
[2018-02-18] MEDS: LISINOPRIL 20 MG TABLET (FP) PO SCH (10:50)
[2018-02-18] MEDS: DARUNAVIR ETHANOLATE 800 MG TAB PO SCH (10:51)
[2018-02-18] MEDS: LIDOCAINE PATCH REMOVAL MC SCH (22:01)
[2018-02-18] MEDS: THIAMINE HCL 100 MG TABLET (FP) PO SCH (22:01)
[2018-02-18] MEDS: MELATONIN 5 MG TABLETS PO PRN (22:02)
[2018-02-19] MEDS: LIDOCAINE 5% TOPICAL PATCH TP SCH (10:47)
[2018-02-19] MEDS: LISINOPRIL 20 MG TABLET (FP) PO SCH (10:48)
[2018-02-19] MEDS: DARUNAVIR ETHANOLATE 800 MG TAB PO SCH (10:48)
[2018-02-19] MEDS: RITONAVIR 100 MG TABLET PO SCH (10:49)
[2018-02-19] MEDS: ETRAVIRINE 200 MG TABLET PO SCH ×2 (10:49→21:46)
[2018-02-19] MEDS: PRENATAL VITAMINS W/ FOLIC ACID TABLET (FP) PO SCH (10:51)
[2018-02-19] MEDS: MELATONIN 5 MG TABLETS PO PRN (21:46)
[2018-02-19] MEDS: LIDOCAINE PATCH REMOVAL MC SCH (21:46)
[2018-02-19] MEDS: THIAMINE HCL 100 MG TABLET (FP) PO SCH (21:46)
[2018-02-20] MEDS: LISINOPRIL 20 MG TABLET (FP) PO SCH (10:58)
[2018-02-20] MEDS: PRENATAL VITAMINS W/ FOLIC ACID TABLET (FP) PO SCH (10:59)
[2018-02-20] MEDS: RITONAVIR 100 MG TABLET PO SCH (10:59)
[2018-02-20] MEDS: ETRAVIRINE 200 MG TABLET PO SCH ×2 (10:59→21:58)
[2018-02-20] MEDS: DARUNAVIR ETHANOLATE 800 MG TAB PO SCH (10:59)
[2018-02-20] MEDS: LIDOCAINE 5% TOPICAL PATCH TP SCH (11:00)
[2018-02-20] MEDS: THIAMINE HCL 100 MG TABLET (FP) PO SCH (21:58)
[2018-02-20] MEDS: MELATONIN 5 MG TABLETS PO PRN (21:58)
[2018-02-20] MEDS: LIDOCAINE PATCH REMOVAL MC SCH (21:58)
[2018-02-21] MEDS: LISINOPRIL 20 MG TABLET (FP) PO SCH (10:46)
[2018-02-21] MEDS: DARUNAVIR ETHANOLATE 800 MG TAB PO SCH (10:46)
[2018-02-21] MEDS: ETRAVIRINE 200 MG TABLET PO SCH ×2 (10:47→21:36)
[2018-02-21] MEDS: PRENATAL VITAMINS W/ FOLIC ACID TABLET (FP) PO SCH (10:47)
[2018-02-21] MEDS: RITONAVIR 100 MG TABLET PO SCH (10:47)
[2018-02-21] MEDS: LIDOCAINE 5% TOPICAL PATCH TP SCH (10:48)
[2018-02-21] MEDS: MELATONIN 5 MG TABLETS PO PRN (21:36)
[2018-02-21] MEDS: THIAMINE HCL 100 MG TABLET (FP) PO SCH (21:36)
[2018-02-21] MEDS: LIDOCAINE PATCH REMOVAL MC SCH (21:37)
[2018-02-22] MEDS: PRENATAL VITAMINS W/ FOLIC ACID TABLET (FP) PO SCH (10:32)
[2018-02-22] MEDS: RITONAVIR 100 MG TABLET PO SCH (10:32)
[2018-02-22] MEDS: LIDOCAINE 5% TOPICAL PATCH TP SCH (10:32)
[2018-02-22] MEDS: DARUNAVIR ETHANOLATE 800 MG TAB PO SCH (10:32)
[2018-02-22] MEDS: LISINOPRIL 20 MG TABLET (FP) PO SCH (10:32)
[2018-02-22] MEDS: ETRAVIRINE 200 MG TABLET PO SCH ×2 (10:32→21:42)
[2018-02-22] MEDS: THIAMINE HCL 100 MG TABLET (FP) PO SCH (21:42)
[2018-02-22] MEDS: MELATONIN 5 MG TABLETS PO PRN (21:43)
[2018-02-22] MEDS: LIDOCAINE PATCH REMOVAL MC SCH (21:43)
[2018-02-23] MEDS: LISINOPRIL 20 MG TABLET (FP) PO SCH (10:14)
[2018-02-23] MEDS: DARUNAVIR ETHANOLATE 800 MG TAB PO SCH (10:14)
[2018-02-23] MEDS: ETRAVIRINE 200 MG TABLET PO SCH ×2 (10:15→21:36)
[2018-02-23] MEDS: RITONAVIR 100 MG TABLET PO SCH (10:16)
[2018-02-23] MEDS: PRENATAL VITAMINS W/ FOLIC ACID TABLET (FP) PO SCH (10:16)
[2018-02-23] MEDS: LIDOCAINE 5% TOPICAL PATCH TP SCH (10:16)
[2018-02-23] MEDS: LIDOCAINE PATCH REMOVAL MC SCH (21:36)
[2018-02-23] MEDS: THIAMINE HCL 100 MG TABLET (FP) PO SCH (21:36)
[2018-02-24 06:36] VITALS: BP 140/91; PULSE 62; TEMP 98.1
[2018-02-24] MEDS: DARUNAVIR ETHANOLATE 800 MG TAB PO SCH (10:20)
[2018-02-24] MEDS: LISINOPRIL 20 MG TABLET (FP) PO SCH (10:20)
[2018-02-24] MEDS: PRENATAL VITAMINS W/ FOLIC ACID TABLET (FP) PO SCH (10:20)
[2018-02-24] MEDS: ETRAVIRINE 200 MG TABLET PO SCH (10:21)
[2018-02-24] MEDS: RITONAVIR 100 MG TABLET PO SCH (10:21)
[2018-02-24] MEDS: LIDOCAINE 5% TOPICAL PATCH TP SCH (10:21)
--- NOTE | 2018-02-24 10:25 | PN ---
Psychiatric Progress Note Vital Signs: Vital Signs Period Temp Pulse Resp BP Sys/Lopez Pulse Ox Last 24 Hr 98.1 F 62-68 -18 116-140/73-91 Date of Session: 02/24/18 Current Medications: Active Medications Generic Name Dose Route Start Last Admin Trade Name Freq PRN Reason Stop Dose Admin Acetaminophen 650 mg 02/09/18 16:34 02/15/18 22:25 Tylenol - PO 650 mg Q4H PRN Administration PAIN Al Hydroxide/Mg Hydroxide 30 ml 02/07/18 13:13 Mylanta Oral Suspension - PO Q6H PRN DYSPEPSIA Darunavir 800 mg 02/08/18 10:00 02/24/18 10:20 Prezista - PO 800 mg DAILY KASSIE Administration Etravirine 200 mg 02/07/18 22:00 02/24/18 10:21 Intelence - PO 200 mg BID KASSIE Administration Eucalyptus/Menthol/Phenol/Sorbitol 1 each 02/07/18 13:13 Cepastat Lozenge - MM Q4H PRN SORE THROAT Guaifenesin 10 ml 02/07/18 13:13 Robitussin Dm - PO Q6H PRN COUGH Hydroxyzine Pamoate 50 mg 02/07/18 13:13 02/23/18 21:37 Vistaril - PO 50 mg Q4H PRN Administration AGITATION Lidocaine 1 patch 02/07/18 15:00 02/24/18 10:21 Lidoderm Patch - TP Not Given DAILY KASSIE Lisinopril 40 mg 02/08/18 10:00 02/24/18 10:20 Prinivil PO 40 mg DAILY KASSIE Administration Loperamide HCl 4 mg 02/07/18 13:13 Imodium - PO Q6H PRN DIARRHEA Magnesium Citrate 300 ml 02/07/18 13:13 Citroma - PO Q48H PRN CONSTIPATION Magnesium Hydroxide 30 ml 02/07/18 13:13 Milk Of Magnesia - PO DAILY PRN CONSTIPATION Melatonin 5 mg 02/07/18 22:00 02/22/18 21:43 Melatonin PO 5 mg HS PRN Administration INSOMNIA Metoprolol Succinate 50 mg 02/07/18 13:30 02/24/18 10:21 Toprol Xl - PO 50 mg BID KASSIE Administration Miscellaneous 1 each 02/07/18 22:00 02/23/18 21:36 Lidoderm Patch Removal MC Not Given DAILY@2200 KASSIE Multivit/Folic Acid/Iron 1 tab 02/08/18 10:00 02/24/18 10:20 Vitamins ([facility]) - PO 1 tab DAILY KSASIE Administration Pseudoephedrine/Triprolidine 1 combo 02/07/18 13:13 Actifed - PO TID PRN NASAL CONGESTION Ritonavir 100 mg 02/08/18 10:00 02/24/18 10:21 Norvir - PO 100 mg DAILY KASSIE Administration Thiamine HCl 100 mg 02/07/18 22:00 02/23/18 21:36 Vitamin B1 - PO 100 mg HS KASSIE Administration Current Side Effect: No Lab tests ordered: No Lab tests reviewed: Yes Provider note:: [facility]
== END 2018-02-24 10:45 | disposition home or self-care (01) | DRG 772 ==
LOC: YASAS 11:48 → Y5N 11:49
PROVIDERS: ADMIT Psychiatry & Neurology Psychiatry; ATTEND Psychiatry & Neurology Psychiatry
PROC: HZ42ZZZ Group Counseling for Substance Abuse Treatment, Cognitive-Behavioral (ICD-10-PCS; principal; 2018-02-07)
DX: F10.20 Alcohol dependence, uncomplicated (principal); F14.20 Cocaine dependence, uncomplicated; F19.280 Other psychoactive substance dependence with psychoactive substance-induced anxiety disorder; F19.282 Other psychoactive substance dependence with psychoactive substance-induced sleep disorder; Z21 Asymptomatic human immunodeficiency virus [HIV] infection status; I10 Essential (primary) hypertension; E78.5 Hyperlipidemia, unspecified; C85.90 Non-Hodgkin lymphoma, unspecified, unspecified site; Z86.69 Personal history of other diseases of the nervous system and sense organs; Z88.2 Allergy status to sulfonamides; Z88.6 Allergy status to analgesic agent; Z88.1 Allergy status to other antibiotic agents